=== PATIENT | female | born 1990 | race Caucasian/White ===

== ENCOUNTER 2020-03-09 09:31 | Emergency (ER) | payer BC ==
[~2020-03-09] VITALS: Ht 154.9 cm; Wt 57.3 kg
--- NOTE | 2020-03-09 09:53 | NUR ---
29 Y/O FEMALE PRESENTS TO ED WITH C/O N/D. PER PT "I WAS FEELING NAUSEOUS YESTERDAY AND IT WENT AWAY. THIS MORNING I FELT THE SAME AND GOT SOME DIARRHEA. THE DIARRHEA JUST STARTED THIS MORNING. I WAS OUT IN THE SUN THE LAST FEW DAYS. I THOUGHT I WAS DRINKING ENOUGH WATER. I'VE BEEN HOSPITALIZED BEFORE FOR DEHYDRATION." NADN. PT PLACED ON CONT PULSE OX,NIBP. MOTHER BEDSIDE. NO C/O TRAUMA, SYNCOPE, CP, SOB.
--- NOTE | 2020-03-09 09:59 | NUR ---
PT TELLING EDMD "MY STOOL IS JUST LOOSE. IT'S NOT DIARRHEA."
[2020-03-09] MEDS ORDERED: LORazepam 2 MG/ML, 1ML ONE (10:20)
--- NOTE | 2020-03-09 10:28 | NUR ---
IN TO ADMINISTER MEDICATION. PT TO BATHROOM. PT STEADY GAIT TO BR. NO C/O DIZZINESS
[2020-03-09] MEDS ORDERED: SODIUM CHLORIDE FLUSH 10ML SYR IVF ONE (10:30)
[2020-03-09] MEDS ORDERED: LORazepam 2 MG/ML, 1ML IVPush ONE (10:30)
[2020-03-09] MEDS ORDERED: SODIUM CHLORIDE 0.9% 1,000ML IVBOLUS ONE (10:30)
--- NOTE | 2020-03-09 10:33 | NUR ---
PT BACK FROM BATHROOM. PT REATTACHED TO MONITORS. NADN. NO NEEDS REQUESTED AT THIS TIME.
[2020-03-09 10:34] VITALS: BP 101/63
[2020-03-09 10:36] LABS: BASOPHILS # (AUTO) 0.02 x10^3/uL (0-0.1); BASOPHILS % (AUTO) 0 % (0-1); EOSINOPHILS # (AUTO) 0.03 x10^3/uL (0-0.4); EOSINOPHILS % (AUTO) 0 % (1-7); LYMPHOCYTES # (AUTO) 1.13 x10^3/uL (1-3.4); LYMPHOCYTES % (AUTO) 20 % (22-44); MD NO; MEAN CORPUSCULAR HEMOGLOBIN 29.8 pg (27.0-34.8); MEAN CORPUSCULAR HGB CONC 33.7 g/dL (32.4-35.8); MEAN CORPUSCULAR VOLUME 88.4 fL (80-100); MEAN PLATELET VOLUME 10.3 fL (7.4-10.4); MONOCYTES # (AUTO) 0.26 x10^3/uL (0.2-0.8); MONOCYTES % (AUTO) 5 % (2-9); NEUTROPHILS # (AUTO) 4.22 x10^3/uL (1.8-6.8); NEUTROPHILS % (AUTO) 75 % (42-75); PLATELET COUNT 202 x10^3/uL (130-400); RED BLOOD COUNT 4.41 x10^6/uL (3.82-5.3); RED CELL DISTRIBUTION WIDTH 12.8 % (9.6-15.2)
[2020-03-09 10:37] LABS: ALBUMIN 4.1 g/dL (3.4-5.0); ANION GAP 4 mmol/L (5-15); CALCIUM 9.2 mg/dL (8.5-10.1); CHLORIDE 112 mmol/L (98-107)
[2020-03-09 10:42] LABS: ALANINE AMINOTRANSFERASE 13 U/L (12-78); ALKALINE PHOSPHATASE 50 U/L (45-117); BILIRUBIN,TOTAL 0.5 mg/dL (0.2-1.0); CREATININE 0.78 mg/dL (0.55-1.02); TOTAL PROTEIN 7.4 g/dL (6.4-8.2)
--- NOTE | 2020-03-09 11:21 | NUR ---
Patient/Caregiver given discharge instructions and they have confirmed that they understand the instructions. Patient ambulatory with steady gait. PT LEFT WITH ALL PERSONAL BELONGINGS. PT STATES "I FEEL A LITTLE BETTER." HARJITN. MOTHER WITH PT
== END 2020-03-09 11:23 | disposition home or self-care (01) ==
LOC: ED 11:12
DX: R19.7 Diarrhea, unspecified (principal); E86.0 Dehydration; R11.0 Nausea
CPT/HCPCS: 36415; 80053; 83735; 85025; 96374; 99283; J2060; J7030